=== PATIENT | male | born 1990 | race Caucasian/White ===

== ENCOUNTER 2021-11-28 00:06 | Emergency (ER) | payer OTHER ==
[~2021-11-28] VITALS: Ht 172.7 cm; Wt 68.2 kg
[2021-11-28 00:15] VITALS: BP 139/95
== END 2021-11-28 01:25 ==
LOC: ER 00:10
DX: F10.920 Alcohol use, unspecified with intoxication, uncomplicated (principal); V98.8XXA Other specified transport accidents, initial encounter; Y93.89 Activity, other specified; Y92.89 Other specified places as the place of occurrence of the external cause; Y99.8 Other external cause status; Y90.9 Presence of alcohol in blood, level not specified
CPT/HCPCS: 99283